=== PATIENT | female | born 1960 | race Hispanic/Latino ===

== ENCOUNTER → 2024-09-28 | Outpatient (REF) | payer MEDICARE ==
[~2024-09-28] MED LIST: ATORVASTATIN CA20 MG PO; CARVEDILOL12.5 MG PO; GABAPENTIN300 MG PO; GLIMEPIRIDE2 MG PO; LISINOPRIL40 MG PO; METFORMIN HCL850 MG PO; SERTRALINE HCL100 MG PO; ZOLPIDEM TARTRAT5 MG PO
== END ==
LOC: US 08:44
PROVIDERS: ATTEND Nurse Practitioner Family
DX: R19.8 Other specified symptoms and signs involving the digestive system and abdomen (principal)
CPT/HCPCS: 76700; 76856

== ENCOUNTER → 2024-11-15 | Outpatient (REF) | payer MEDICARE | LOC: US 08:19 | PROVIDERS: ATTEND Nurse Practitioner Family | DX: R19.8 Other specified symptoms and signs involving the digestive system and abdomen (principal) | CPT/HCPCS: 76700 ==